=== PATIENT | female | born 1985 | race Two or more races ===

== ENCOUNTER 2022-02-24 08:52 | Outpatient (REF) | payer OTHER, SELFPAY ==
[2022-02-24 09:17] LABS: MANUAL DIFF FLAG NO
[2022-02-24 10:04] LABS: Basophils Percent Auto 0.7 % (0-2); Eosinophils Absolute Auto 0.2 X10*3/uL (0.0-0.4); Eosinophils Percent Auto 5.3 % (0-4); Hematocrit 33.3 % (37.0-47.0); Hemoglobin 10.4 g/dl (12.0-16.0); Lymphocytes Percent Auto 34.3 % (20-40); Mean Corpuscular HGB Conc 31.2 g/dl (31.0-35.0); Mean Corpuscular Hemoglobin 25.2 pg (27.0-33.0); Mean Corpuscular Volume 80.6 fL (80.0-98.0); Mean Platelet Volume 11.7 fL (9.4-12.3); Monocytes Absolute Auto 0.3 X10*3/uL (0.1-1.2); Monocytes Percent Auto 9.9 % (2-11); Neutrophils Absolute Auto 1.4 x10*3/uL (2.0-8.3); Neutrophils Percent Auto 49.8 % (45-73); Platelet Count 254 X10*3/uL (160-400); Red Blood Count 4.13 X10*6/uL (4.20-5.50); Red Cell Distribution Width 15.2 % (11.0-16.0); White Blood Count 2.8 X10*3/uL (4.8-10.8)
[2022-02-24 10:14] LABS: Appearance Urine Clear; Color Urine Yellow; Glucose Urine UA Negative (Negative); Leukocyte Esterase Urine Negative (Negative); Nitrite Urine Negative (Negative); Specific Gravity - Urine 1.025 (1.005-1.025); Urine Blood Negative (Negative); Urine Ketones Negative (Negative); Urine Protein Negative (Neg-Trace)
[2022-02-24 10:17] LABS: Bacteria Urine None Seen (None Seen); Hyaline Casts Urine 0-2 /LPF (0-2); RBC Urine 0-2 /HPF (0-2); Squamous Epithelial Cell Urine 0-2 /HPF (0-2); WBC Urine 0-5 /HPF (0-5)
[2022-02-24 10:37] LABS: C Reactive Protein 0.21 mg/dL (< or = 0.50); Rheumatoid Factor < 15.0 IU/mL (<15.0)
[2022-02-24 10:53] LABS: Thyroid Stimulating Hormone 1.89 uIU/mL (0.32-4.0)
[2022-02-24 10:54] LABS: Erythrocyte Sedimentation Rate 11 MM/HR (0-20)
[2022-02-24 10:59] LABS: HBS Num1 69.58 mIU/mL (0-7.99); HBc Num1 0.13 S/CO (0.00-0.79); HBsAGNum1 0.14 S/CO (0.00-0.99); Hepatitis B Core Antibody Nonreactive (Nonreactive); Hepatitis B Surface Antigen Negative (Negative); ~HepC Num1 0.17 S/CO (0.00-0.79); ~Hepatitis B Surface Antibody REACTIVE (Nonreactive); ~Hepatitis C Antibody Nonreactive (Nonreactive)
[2022-02-24 11:15] LABS: Creatinine Urine 248.88 mg/dL; Protein/Creatinine Ratio, Ur 0.04 (<0.2); Total Protein Urine Random 10 mg/dL (<12)
[2022-02-25 04:34] LABS: Hepatitis A Antibody IgM 0.17 Index (0-0.79); ~Hepatitis A Antibody IgM Nonreactive (Nonreactive)
[2022-02-25 10:57] LABS: Complement C3 80 mg/dL (83-193)
[2022-02-26 07:02] LABS: Thyroglobulin Antibodies 21 IU/mL (< or = 1)
[2022-02-26 09:02] LABS: Lyme Abs Screen <0.90 index
[2022-02-26 14:41] LABS: IgA 495 mg/dL (47-310); IgG 1510 mg/dL (600-1640); IgM 189 mg/dL (50-300)
[2022-02-26 22:32] LABS: Prot Elec - Albumin 3.9 g/dL (3.8-4.8); Prot Elec - Alpha1 0.3 g/dL (0.2-0.3); Prot Elec - Alpha2 0.6 g/dL (0.5-0.9); Prot Elec - Beta 1 0.5 g/dL (0.4-0.6); Prot Elec - Beta 2 0.4 g/dL (0.2-0.5); Prot Elec - Gamma 1.5 g/dL (0.8-1.7); Prot Elec - Total Protein 7.1 g/dL (6.1-8.1)
[2022-02-26 23:26] LABS: Anti DNA DS Antibody 1 IU/mL; Antibody to SS-A Antigen >8.0 POS AI (<1.0 NEG); Antibody to SS-B Antigen 3.7 POS AI (<1.0 NEG); SM/Ribonucleoprotein Ab <1.0 NEG AI (<1.0 NEG); Smith Protein <1.0 NEG AI (<1.0 NEG)
[2022-02-27 14:11] LABS: Cyclic Citrullinated Peptide <16 UNITS
[2022-02-27 15:07] LABS: Anti Nuclear Antibody Screen POSITIVE (NEGATIVE)
[2022-02-28 02:27] LABS: Thyroid Peroxidase Antibodies 1 IU/mL (<9)
[2022-03-01 15:21] LABS: Beta-2 Glycoprotein IgG <2.0 U/mL (<20.0); Beta-2 Glycoprotein IgM 9.1 U/mL (<20.0)
[2022-03-02 06:51] LABS: PTT (LAC) Screen 35 sec (<=40)
[2022-03-02 13:42] LABS: Cardiolipin IgG Ab <2.0 GPL-U/mL; Cardiolipin IgM Ab 5.8 MPL-U/mL
== END 2022-02-24 08:53 | disposition home or self-care (01) ==
LOC: HO.10HDL 08:52
PROVIDERS: Visit Provider Student in an Organized Health Care Education/Training Program
DX: M25.541 Pain in joints of right hand (principal); M25.542 Pain in joints of left hand; M25.572 Pain in left ankle and joints of left foot; M25.571 Pain in right ankle and joints of right foot; M26.609 Unspecified temporomandibular joint disorder, unspecified side; R76.8 Other specified abnormal immunological findings in serum; Z11.59 Encounter for screening for other viral diseases; Z13.21 Encounter for screening for nutritional disorder
CPT/HCPCS: 36415; 81001; 82784; 84156; 84165; 84443; 85025; 85597; 85613; 85652; 85730; 86038; 86039; 86140; 86146; 86147; 86160; 86200; 86225; 86235; 86334; 86376; 86431; 86617; 86618; 86704; 86706; 86709; 86800; 86803; 87340; 99202

== ENCOUNTER 2022-03-09 08:01 | Outpatient (REF) | payer OTHER, SELFPAY ==
--- NOTE | ~2022-03-09 | XR_ITS ---
EXAMINATION: X-RAY BILATERAL FEET CLINICAL INFORMATION: Pain. COMPARISON: None TECHNIQUE: 3 views of each foot. FINDINGS: No acute fractures or malalignment. No significant degenerative changes. No erosions. No chondrocalcinosis. Mild bilateral diffuse soft tissue thickening, nonspecific. XR/XR foot LT min 3V IMPRESSION: 1. No acute fractures or malalignment. 2. No significant degenerative changes. 3. Mild bilateral diffuse soft tissue thickening, nonspecific.
--- NOTE | ~2022-03-09 | XR_ITS ---
EXAMINATION: X-RAY BILATERAL HANDS/WRISTS CLINICAL INFORMATION: Pain. COMPARISON: None. TECHNIQUE: 4 views of each hand/wrist. FINDINGS: No acute fractures or malalignment. No significant degenerative changes. No erosions. No chondrocalcinosis. No unexpected radiopaque foreign bodies. XR/XR hand wrist RT IMPRESSION: No acute fractures or malalignment. No significant degenerative changes.
--- NOTE | ~2022-03-09 | XR_ITS ---
EXAMINATION: X-RAY BILATERAL FEET CLINICAL INFORMATION: Pain. COMPARISON: None TECHNIQUE: 3 views of each foot. FINDINGS: No acute fractures or malalignment. No significant degenerative changes. No erosions. No chondrocalcinosis. Mild bilateral diffuse soft tissue thickening, nonspecific. XR/XR foot RT min 3V IMPRESSION: 1. No acute fractures or malalignment. 2. No significant degenerative changes. 3. Mild bilateral diffuse soft tissue thickening, nonspecific.
--- NOTE | ~2022-03-09 | XR_ITS ---
EXAMINATION: X-RAY BILATERAL HANDS/WRISTS CLINICAL INFORMATION: Pain. COMPARISON: None. TECHNIQUE: 4 views of each hand/wrist. FINDINGS: No acute fractures or malalignment. No significant degenerative changes. No erosions. No chondrocalcinosis. No unexpected radiopaque foreign bodies. XR/XR hand wrist LT IMPRESSION: No acute fractures or malalignment. No significant degenerative changes.
== END 2022-03-09 08:02 | disposition home or self-care (01) ==
LOC: HO.XRAY 08:01
PROVIDERS: Visit Provider Student in an Organized Health Care Education/Training Program
DX: M25.542 Pain in joints of left hand (principal); M25.572 Pain in left ankle and joints of left foot; M25.571 Pain in right ankle and joints of right foot; M25.541 Pain in joints of right hand
CPT/HCPCS: 73110; 73130; 73630

== ENCOUNTER → 2022-05-01 13:49 | Outpatient (BNVA) | payer OTHER, SELFPAY | PROVIDERS: PCP Internal Medicine; Visit Provider Student in an Organized Health Care Education/Training Program | DX: Z51.81 Encounter for therapeutic drug level monitoring (principal); M32.9 Systemic lupus erythematosus, unspecified; R76.8 Other specified abnormal immunological findings in serum; Z79.899 Other long term (current) drug therapy | CPT/HCPCS: 99212 ==

== ENCOUNTER 2022-05-05 09:40 | Outpatient (REF) | payer OTHER, SELFPAY ==
[2022-05-05 10:01] LABS: MANUAL DIFF FLAG NO
[2022-05-05 10:25] LABS: Appearance Urine Clear; Color Urine Yellow; Glucose Urine UA Negative (Negative); Leukocyte Esterase Urine Small (1+) (Negative); Nitrite Urine Negative (Negative); Specific Gravity - Urine 1.015 (1.005-1.025); UMIC TRIGGER UA YES; Urine Blood Negative (Negative); Urine Ketones Negative (Negative); Urine Protein Negative (Neg-Trace)
[2022-05-05 10:34] LABS: Basophils Percent Auto 0.8 % (0-2); Eosinophils Absolute Auto 0.1 X10*3/uL (0.0-0.4); Eosinophils Percent Auto 2.8 % (0-4); Imm Gran Abs Auto 0.01 X10*3/uL (0.00-0.03); Imm Gran Pct Auto 0.3 % (0.0-0.4); Lymphocytes Percent Auto 28.3 % (20-40); Mean Corpuscular HGB Conc 31.4 g/dl (31.0-35.0); Mean Corpuscular Hemoglobin 24.7 pg (27.0-33.0); Mean Corpuscular Volume 78.7 fL (80.0-98.0); Mean Platelet Volume 12.5 fL (9.4-12.3); Monocytes Absolute Auto 0.4 X10*3/uL (0.1-1.2); Monocytes Percent Auto 11.3 % (2-11); Neutrophils Percent Auto 56.5 % (45-73); Platelet Count 247 X10*3/uL (160-400); Red Blood Count 4.45 X10*6/uL (4.20-5.50); Red Cell Distribution Width 14.9 % (11.0-16.0); White Blood Count 3.5 X10*3/uL (4.8-10.8)
[2022-05-05 10:53] LABS: Bacteria Urine 2+ (None Seen); Hyaline Casts Urine 0-2 /LPF (0-2); RBC Urine 0-2 /HPF (0-2); WBC Urine 0-5 /HPF (0-5)
[2022-05-05 11:20] LABS: Creatinine Urine 88.49 mg/dL; Total Protein Urine Random < 7 mg/dL (<12)
[2022-05-05 11:20] LABS: Erythrocyte Sedimentation Rate 11 MM/HR (0-20)
[2022-05-05 14:50] LABS: Alanine Aminotransferase 8 U/L (0-31); Albumin Level 4.1 g/dL (3.5-5.0); Alkaline Phosphatase 58 U/L (39-117); Anion Gap 12 (12-20); Aspartate Amino Transferase 14 U/L (5-31); Bilirubin Total 0.3 mg/dL (0.0-1.0); Blood Urea Nitrogen 12 mg/dL (9-16); C Reactive Protein 0.18 mg/dL (< or = 0.50); Calcium 9.2 mg/dL (8.4-10.2); Carbon Dioxide 22 mmol/L (22-29); Chloride 109 mmol/L (96-108); Estimated Glomerular Filt Rate > 60; Ferritin 5 ng/mL (10-122); Free T4 (Free Thyroxine) 0.95 ng/dL (0.71-1.85); Glucose Random 91 mg/dL (60-115); Iron 20 mcg/dL (30-160); Percent Iron Saturation 5 % (15-50); Potassium 4.4 mmol/L (3.3-5.1); Sodium 139 mmol/L (135-145); Thyroid Stimulating Hormone 2.41 uIU/mL (0.32-4.0); Total Iron Binding Capacity 378 mcg/dL (228-428); Total Protein 7.2 g/dL (6.5-8.0); Unsaturated Iron Binding 358 ug/dL
[2022-05-06 05:15] LABS: HIV AB/AG Nonreactive (Nonreactive); HIV Num 1 0.09 S/CO (0.00-0.99)
[2022-05-07 13:23] LABS: Complement C3 85 mg/dL (83-193)
[2022-05-07 14:33] LABS: Transferrin 354 mg/dL (188-341)
[2022-05-07 14:34] LABS: Anti DNA DS Antibody 1 IU/mL; Scleroderma 70 Antibody <1.0 NEG AI (<1.0 NEG)
[2022-05-09 04:48] LABS: Anti-Centromere B Antibodies <1.0 NEG AI (<1.0 NEG)
[2022-05-11 14:59] LABS: Vitamin D 25-OH, D2 <4 ng/mL; Vitamin D 25-OH, D3 15 ng/mL; Vitamin D 25-OH, Total 15 ng/mL (30-100)
[2022-05-12 14:03] LABS: Angiotensin Converting Enzyme 12 U/L (9-67)
[2022-05-14 13:02] LABS: TPMT Activity 14
== END 2022-05-05 09:41 | disposition home or self-care (01) ==
LOC: HO.LAB 09:40
PROVIDERS: PCP Internal Medicine; Visit Provider Student in an Organized Health Care Education/Training Program
DX: Z11.59 Encounter for screening for other viral diseases (principal); Z13.21 Encounter for screening for nutritional disorder; Z11.4 Encounter for screening for human immunodeficiency virus [HIV]; R76.8 Other specified abnormal immunological findings in serum; M32.9 Systemic lupus erythematosus, unspecified; D64.9 Anemia, unspecified; Z79.624 Long term (current) use of inhibitors of nucleotide synthesis
CPT/HCPCS: 36415; 80053; 81001; 82164; 82306; 82550; 82657; 82728; 83540; 84156; 84439; 84443; 84466; 85025; 85652; 86140; 86160; 86225; 86235; 87389

== ENCOUNTER → 2022-06-17 13:41 | Outpatient (BNVA) | payer OTHER, SELFPAY | PROVIDERS: PCP Internal Medicine; Visit Provider Student in an Organized Health Care Education/Training Program | DX: M32.9 Systemic lupus erythematosus, unspecified (principal); R76.8 Other specified abnormal immunological findings in serum; Z51.81 Encounter for therapeutic drug level monitoring; Z79.899 Other long term (current) drug therapy | CPT/HCPCS: 99212 ==

== ENCOUNTER 2022-12-21 14:21 | Outpatient (REF) | payer OTHER, SELFPAY ==
[2022-12-21 14:33] LABS: MANUAL DIFF FLAG NO
[2022-12-21 14:57] LABS: Basophils Percent Auto 0.4 % (0-2); Eosinophils Absolute Auto 0.2 X10*3/uL (0.0-0.4); Eosinophils Percent Auto 3.9 % (0-4); Hematocrit 31.6 % (37.0-47.0); Hemoglobin 9.6 g/dl (12.0-16.0); Imm Gran Abs Auto 0.01 X10*3/uL (0.00-0.03); Imm Gran Pct Auto 0.2 % (0.0-0.4); Lymphocytes Absolute Auto 1.4 X10*3/uL (1.2-4.9); Mean Corpuscular HGB Conc 30.4 g/dl (31.0-35.0); Mean Corpuscular Hemoglobin 23.1 pg (27.0-33.0); Mean Corpuscular Volume 76.1 fL (80.0-98.0); Mean Platelet Volume 12.1 fL (9.4-12.3); Monocytes Absolute Auto 0.5 X10*3/uL (0.1-1.2); Monocytes Percent Auto 9.3 % (2-11); Neutrophils Absolute Auto 2.8 x10*3/uL (2.0-8.3); Neutrophils Percent Auto 58.2 % (45-73); Platelet Count 242 X10*3/uL (160-400); Red Blood Count 4.15 X10*6/uL (4.20-5.50); Red Cell Distribution Width 16.1 % (11.0-16.0); White Blood Count 4.9 X10*3/uL (4.8-10.8)
[2022-12-21 15:05] LABS: Appearance Urine Clear; Color Urine Yellow; Glucose Urine UA Negative (Negative); Leukocyte Esterase Urine Negative (Negative); Nitrite Urine Negative (Negative); Urine Blood Negative (Negative); Urine Ketones Trace mg/dL (Negative); Urine Protein Negative (Neg-Trace)
[2022-12-21 15:08] LABS: Bacteria Urine Trace (None Seen); Hyaline Casts Urine 0-2 /LPF (0-2); RBC Urine 0-2 /HPF (0-2); WBC Urine 0-5 /HPF (0-5)
[2022-12-21 15:55] LABS: Alanine Aminotransferase 9 U/L (0-31); Alkaline Phosphatase 56 U/L (39-117); Anion Gap 10 (12-20); Aspartate Amino Transferase 16 U/L (5-31); Bilirubin Total 0.3 mg/dL (0.0-1.0); Blood Urea Nitrogen 10 mg/dL (9-16); C Reactive Protein 0.34 mg/dL (< or = 0.50); Calcium 9.1 mg/dL (8.4-10.2); Carbon Dioxide 28 mmol/L (22-29); Chloride 107 mmol/L (96-108); Estimated Glomerular Filt Rate > 60; Glucose Random 86 mg/dL (60-115); Potassium 3.5 mmol/L (3.3-5.1); Sodium 141 mmol/L (135-145); Total Protein 7.4 g/dL (6.5-8.0)
[2022-12-21 16:02] LABS: Creatinine Urine 157.11 mg/dL; Total Protein Urine Random < 7 mg/dL (<12)
[2022-12-21 16:25] LABS: Erythrocyte Sedimentation Rate 12 MM/HR (0-20)
[2022-12-22 13:48] LABS: Anti DNA DS Antibody 1 IU/mL
[2022-12-23 17:09] LABS: Complement C3 92 mg/dL (83-193)
[2022-12-24 12:54] LABS: DNAds, Crithidia Antibody Negative (Negative)
== END 2022-12-21 14:22 | disposition home or self-care (01) ==
LOC: HO.LAB 14:21
PROVIDERS: PCP Internal Medicine; Visit Provider Student in an Organized Health Care Education/Training Program
DX: M32.9 Systemic lupus erythematosus, unspecified (principal)
CPT/HCPCS: 36415; 80053; 81001; 84156; 85025; 85652; 86140; 86160; 86225; 86255

== ENCOUNTER 2023-02-16 08:13 | Outpatient (AMB) | payer OTHER, SELFPAY ==
[2023-02-16 08:14] VITALS: BP 108/72; PULSE 71; TEMP 36.2; O2SAT 99; BMI 34.1
--- NOTE | 2023-02-16 08:14 | A.OFFVIS_ITS ---
Intake Vital Signs 02/16/23 08:14 Height 5 ft 3 in Weight 192 lb 10.944 oz BMI 34.1 BP 108/72 Blood Pressure Location Rt brachial Position Sitting Pulse 71 Pulse Source Pulse Oximeter Temp 97.2 F Temp Source Skin Pulse Oximetry (%) 99 Intake Visit Reasons: SLE Intake Note: Pt seen today for SLE follow up. Reports she has not been taking iron or plaquenil consistently for a while [employer] Required: No Accompanied by: Self / Same As Patient Allergies No Known Allergies Allergy (Verified 02/16/23 08:16) Medication List - Last Reconciled 02/16/23 by Earlene Cristobal MD HPI HPI Comments History of Present Illness Details This is a 37-year-old female with SLE who presents for follow-up. Patient stated that she tried getting but was unable to. She was taking Pradaxa chloroquine consistently until about 2 months ago. She stated that when she stopped hydroxychloroquine she got intermittent rashes on her face and intermittent joint pain. Otherwise she felt well overall. She was started on iron tablets for iron deficiency anemia but she stopped it due to GI upset Initial history: This is a 36-year-old female with a past medical history of recurrent herpes simplex general infections, TMJ who presents for evaluation of positive JONATHAN. About 3-4 years ago the patient noticed bilateral jaw pain, especially when she is getting ready to eat. She was diagnosed with TMJ and prescribed muscle relaxant which provided some relief. About 3-4 years ago patient also noticed intermittent right wrist swelling and pain, that is random, can be worse in the morning or at night, associated with stiffness, unknown how long. This can happen 3-5 days out of the month. Her PCP prescribed a prednisone taper with good relief. Also she has been noticing thinning hair in the front of her head. She also developed acne, on her face., couple weeks ago she had a skin rash on her cheeks that resolved on its own in 1 day. She was evaluated by Dermatology and was told she might have SLE. She was prescribed a cream for her acne but her insurance did not authorize it. She also has been having intermittent headaches. Around the same time also she had a small in right cervical lymph node, she had an ultrasound and evaluated by General surg zo and per patient the lesion was not concerning enough for a biopsy or an excision. Patient had 6 pregnancies and 3 induced abortions. No history of DVT/PE. She is unaware of a family history of autoimmune rheumatic disease. Mother had hypothyroidism [facility] Medical History (Updated 02/16/23 @ 08:41 by Earlene Cristobal MD) Cervical lymphadenopathy Screening for viral disease Herpes simplex of female genitalia TMJ (temporomandibular joint disorder) Surgical History No history of previous surgery Family History Mother Hypercholesteremia Migraine Hypothyroid Maternal Grandmother Small bowel cancer Family/Other Diabetes, Onset Age: 50 Breast cancer, Onset Age: 50 Father Heart disease Hypertension Social History Household Members: Spouse and Children Alcohol intake: current Alcohol intake frequency: holidays/special occasions o nly Patient Tobacco Use Status: Never used Tobacco Substance Use Type: Marijuana Current occupational status: employed Current occupation: counselor at formerly [employer] Female Reproductive History Menstrual Total pregnancies: 6 Full term: 3 Ab spontaneous: 3 Review of Systems Musc Reports arthralgias Skin/Breast Reports acne and Reports rash Physical Exam Vital Signs: Last Vital Signs Temp 97.2 F 02/16/23 08:14 Pulse 71 02/16/23 08:14 BP 108/72 02/16/23 08:14 Pulse Ox 99 02/16/23 08:14 BMI result Body Mass Index 34.1 Const General: cooperative, healthy appearing, comfortable and no acute distress Nutritional Appearance: obese Orientation/consciousness: patient oriented x3 Limitations: no limitations HEENT Head: Yes normocephalic and Yes atraumatic Mouth: Normal oral and palatal mucosa present Resp Effort & Inspection: normal respiratory effort and able to speak in complete sentences Auscultation: clear to auscultation bilaterally Cardio Rate: regular rate Rhythm: regular rhythm Heart sounds: S1 normal heart sound present and S2 normal heart sound present GI Inspection: No distended Palpation (GI): Soft to palpation and nontender Skin General skin exam: no rashes or lesions noted Neuro General: patient oriented x3 Extrem Other: No swollen or tender joints today Normal nailfold capillaroscopy Assessment & Plan Assessment & Plan (1) Lupus (systemic lupus erythematosus): Code(s): M32.9 - Systemic lupus erythematosus, unspecified Qualifiers: Systemic lupus erythematosus type: unspecified Systemic lupus erythematosus organ involvement: unspecified Qualified Code(s): M32.9 - Systemic lupus erythematosus, unspecified Plan: This is a 37-year-old female with new onset SLE (+++JONATHAN, +++SSA/+SSB, mildly low C3, arthralgias, facial rash, acne, lymphadenopathy, fatigue, lymphopenia, neutropenia, ) who presents for follow-up. Patient tried getting a few months ago but was unable to conceive. She had been taking hydroxychloroquine consistently until about 2 months ago. Since stopping hydroxychloroquine she was getting rare rashes and rare arthralgias. Feels well otherwise. Labs 2 months ago were unremarkable. Patient no longer plans on getting again. She has no major organ involvement with her SLE so far. Patient would like to hold off on continue hydroxychloroquine for now unless her symptoms change Labs before next visit in 6 months. Follow-up sooner if needed (2) Anemia: Code(s): D64.9 - Anemia, unspecified Qualifiers: Anemia type: iron deficiency Iron deficiency anemia type: unspecified iron deficiency Qualified Code(s): D50.9 - Iron deficiency anemia, unspecified Plan: Iron deficiency anemia. Patient could not tolerate oral iron. Follow-up with PCP Plan I spent 25 minutes reviewing patient's chart, evaluating patient, ordering diagnostic workup, counseling patient and documenting in the chart Orders: Orders Comprehensive Met. Panel 6 Months M32.9 - Systemic lupus erythematosus, unspecified Anti DNA DS Antibody 6 Months M32.9 - Systemic lupus erythematosus, unspecified Complement C3 6 Months M32.9 - Systemic lupus erythematosus, unspecified Complement C4 6 Months M32.9 - Systemic lupus erythematosus, unspecified Erythrocyte Sedimentation Rate 6 Months M32.9 - Systemic lupus erythematosus, unspecified Protein Creatinine Ratio, Ur 6 Months M32.9 - Systemic lupus erythematosus, unspecified UA w Microscopic 6 Months M32.9 - Systemic lupus erythematosus, unspecified Complete Blood Count Auto Diff 6 Months M32.9 - Systemic lupus erythematosus, unspecified TSH reflex Free T4 6 Months R76.8 - Other specified abnormal immunological findings in serum Coding Level of Care Code Est Pt Level 4 (65565) Diagnoses Systemic lupus erythematosus, unspecified SLE type, unspecified organ involvement status M32.9 Systemic lupus erythematosus type: unspecified Systemic lupus erythematosus organ involvement: unspecified Iron deficiency anemia, unspecified iron deficiency anemia type D50.9 Anemia type: iron deficiency Iron deficiency anemia type: unspecified iron deficiency
== END 2023-02-16 08:35 | disposition home or self-care (01) ==
PROVIDERS: PCP Internal Medicine; Visit Provider Student in an Organized Health Care Education/Training Program
DX: M32.9 Systemic lupus erythematosus, unspecified (principal); D50.9 Iron deficiency anemia, unspecified
CPT/HCPCS: 99214

== ENCOUNTER → 2023-02-16 08:13 | Outpatient (BNVA) | payer OTHER, SELFPAY | PROVIDERS: PCP Internal Medicine; Visit Provider Student in an Organized Health Care Education/Training Program | DX: M32.9 Systemic lupus erythematosus, unspecified (principal); D50.9 Iron deficiency anemia, unspecified | CPT/HCPCS: 99212 ==

== ENCOUNTER 2023-08-23 12:42 | Outpatient (REF) | payer OTHER, SELFPAY ==
[2023-08-23 13:32] LABS: MANUAL DIFF FLAG NO
[2023-08-23 15:08] LABS: Basophils Percent Auto 0.5 % (0-2); Eosinophils Absolute Auto 0.1 X10*3/uL (0.0-0.4); Eosinophils Percent Auto 2.3 % (0-4); Hematocrit 30.7 % (37.0-47.0); Hemoglobin 9.3 g/dl (12.0-16.0); Imm Gran Abs Auto 0.01 X10*3/uL (0.00-0.03); Imm Gran Pct Auto 0.2 % (0.0-0.4); Lymphocytes Absolute Auto 1.3 X10*3/uL (1.2-4.9); Lymphocytes Percent Auto 28.3 % (20-40); Mean Corpuscular HGB Conc 30.3 g/dl (31.0-35.0); Mean Corpuscular Hemoglobin 21.9 pg (27.0-33.0); Mean Corpuscular Volume 72.4 fL (80.0-98.0); Mean Platelet Volume 12.2 fL (9.4-12.3); Monocytes Absolute Auto 0.3 X10*3/uL (0.1-1.2); Monocytes Percent Auto 7.7 % (2-11); Neutrophils Absolute Auto 2.7 x10*3/uL (2.0-8.3); Platelet Count 242 X10*3/uL (160-400); Red Blood Count 4.24 X10*6/uL (4.20-5.50); Red Cell Distribution Width 16.7 % (11.0-16.0); White Blood Count 4.4 X10*3/uL (4.8-10.8)
[2023-08-23 15:43] LABS: Erythrocyte Sedimentation Rate 12 MM/HR (0-20)
[2023-08-23 15:46] LABS: Alanine Aminotransferase 8 U/L (0-31); Alkaline Phosphatase 68 U/L (39-117); Anion Gap 10 (12-20); Aspartate Amino Transferase 15 U/L (5-31); Bilirubin Total 0.2 mg/dL (0.0-1.0); Blood Urea Nitrogen 9 mg/dL (9-16); Calcium 9.2 mg/dL (8.4-10.2); Carbon Dioxide 27 mmol/L (22-29); Chloride 106 mmol/L (96-108); Estimated Glomerular Filt Rate > 60; Glucose Random 84 mg/dL (60-115); Potassium 3.5 mmol/L (3.3-5.1); Sodium 139 mmol/L (135-145); Total Protein 7.6 g/dL (6.5-8.0)
[2023-08-23 15:52] LABS: TSH reflex Free T4 4.23 uIU/mL (0.32-4.0)
[2023-08-23 16:30] LABS: Appearance Urine Clear; Color Urine Yellow; Glucose Urine UA Negative (Negative); Leukocyte Esterase Urine Negative (Negative); Nitrite Urine Negative (Negative); PH 7.5 (5.0-9.0); Specific Gravity - Urine <= 1.005 (1.005-1.025); Urine Blood Negative (Negative); Urine Ketones Negative (Negative); Urine Protein Negative (Neg-Trace)
[2023-08-23 16:36] LABS: Free T4 (Free Thyroxine) 0.99 ng/dL (0.71-1.85)
[2023-08-23 16:36] LABS: Bacteria Urine 1+ (None Seen); Hyaline Casts Urine 0-2 /LPF (0-2); RBC Urine 0-2 /HPF (0-2); WBC Urine 0-5 /HPF (0-5)
[2023-08-23 17:04] LABS: Creatinine Urine 36.06 mg/dL; Total Protein Urine Random < 7 mg/dL (<12)
[2023-08-24 11:58] LABS: Complement C3 97 mg/dL (83-193)
[2023-08-24 22:58] LABS: Anti DNA DS Antibody 1 IU/mL
== END 2023-08-23 12:43 | disposition home or self-care (01) ==
LOC: HO.LAB 12:42
PROVIDERS: PCP Internal Medicine; Visit Provider Student in an Organized Health Care Education/Training Program
DX: M32.9 Systemic lupus erythematosus, unspecified (principal); R76.8 Other specified abnormal immunological findings in serum
CPT/HCPCS: 36415; 80053; 81001; 82570; 84156; 84439; 84443; 85025; 85652; 86160; 86225; 99212